=== PATIENT | female | born 1945 ===

== ENCOUNTER → 2023-04-21 14:01 | Outpatient (CLI) | payer MEDICARE, BC, SELFPAY ==
[2023-04-21 20:36] LABS: BUN Creatinine Ratio 15.3 (6-22); Blood Urea Nitrogen 32 mg/dL (7-17); Carbon Dioxide 20 mmol/L (22-32); Chloride 107 mmol/L (98-107); Estimated Glomerular Filt Rate 24 mL/min (>60); Glucose 87 mg/dL (80-110); HEMOLYSIS < 15 (0-50); Potassium 5.2 mmol/L (3.4-5.1); Sodium 137 mmol/L (137-145)
[2023-04-21 21:18] LABS: Creatinine Urine Random 106.9 mg/dL; Protein (Total) Urine Random 9 mg/dL (0-12); Protein Creatinine Ratio Urine 0.08 GRAM/24H
[2023-04-24 09:20] LABS: Parathyroid Hormone Int 54 pg/mL (15-65)
== END ==
PROVIDERS: PCP Family Medicine; Visit Provider Student in an Organized Health Care Education/Training Program
DX: N05.9 Unspecified nephritic syndrome with unspecified morphologic changes (principal); N25.81 Secondary hyperparathyroidism of renal origin; R80.9 Proteinuria, unspecified
CPT/HCPCS: 80048; 82570; 83970; 84156

== ENCOUNTER → 2023-04-30 11:51 | Outpatient (CLI) | payer MEDICARE, BC, SELFPAY ==
[2023-04-30 21:11] LABS: HEMOLYSIS 17 (0-50)
== END ==
PROVIDERS: PCP Family Medicine; Visit Provider Student in an Organized Health Care Education/Training Program
DX: E87.5 Hyperkalemia (principal)
CPT/HCPCS: 84132

== ENCOUNTER → 2023-11-17 13:54 | Outpatient (CLI) | payer MEDICARE, BC, SELFPAY ==
[2023-11-17 20:31] LABS: Hematocrit 40.9 % (36-46); Hemoglobin 13.6 g/dL (12.0-16.0)
[2023-11-17 20:33] LABS: Appearance Urine UA CLEAR; Bilirubin Urine UA NEGATIVE (NEGATIVE); Color Urine UA YELLOW; Glucose Urine UA NEGATIVE (Negative); Ketones Urine UA NEGATIVE (NEGATIVE); Leukocyte Esterase Urine UA 1+ (NEGATIVE); Nitrite Urine UA NEGATIVE (Negative); Occult Blood Urine UA NEGATIVE (Negative); Protein Urine UA NEGATIVE (Negative); Urobilinogen Urine UA 0.2 E.U./dL (0.2)
[2023-11-17 20:41] LABS: BUN Creatinine Ratio 24.5 (6-22); Blood Urea Nitrogen 36 mg/dL (7-17); Calcium 9.6 mg/dL (8.4-10.2); Carbon Dioxide 25 mmol/L (22-32); Chloride 110 mmol/L (98-107); Estimated Glomerular Filt Rate 36 mL/min (>60); Glucose 87 mg/dL (80-110); HEMOLYSIS 25 (0-50); Phosphorous 3.9 mg/dL (2.8-4.1); Potassium 4.3 mmol/L (3.4-5.1); Sodium 140 mmol/L (137-145)
[2023-11-17 20:46] LABS: Urine Volume 10mL (spun)
[2023-11-17 20:47] LABS: Bacteria Urine Moderate (10-30); Culture Indicated Urine Specimen Cultured; RBC Urine None Seen (0-5/HPF); Squamous Epithelial Cell Urine 5-10 /HPF (0-5/HPF); WBC Urine 5-10/HPF (0-5/HPF)
[2023-11-17 21:06] LABS: Creatinine Urine Random 82.05 mg/dL; Protein (Total) Urine Random 7 mg/dL (0-12); Protein Creatinine Ratio Urine 0.08 GRAM/24H
[2023-11-21 08:08] LABS: Parathyroid Hormone Int 47 pg/mL (15-65)
== END ==
PROVIDERS: PCP Family Medicine; Visit Provider Student in an Organized Health Care Education/Training Program
DX: N05.9 Unspecified nephritic syndrome with unspecified morphologic changes (principal); D70.9 Neutropenia, unspecified; D63.1 Anemia in chronic kidney disease; E83.30 Disorder of phosphorus metabolism, unspecified; N25.81 Secondary hyperparathyroidism of renal origin; N30.00 Acute cystitis without hematuria; R80.9 Proteinuria, unspecified
CPT/HCPCS: 80048; 81001; 82570; 83970; 84100; 84156; 85014; 85018; 87077; 87086; 87186

== ENCOUNTER → 2024-06-06 14:47 | Outpatient (CLI) | payer MEDICARE, BC, SELFPAY ==
[2024-06-06 19:02] LABS: Hematocrit 42.2 % (36-46); Hemoglobin 13.9 g/dL (12.0-16.0)
[2024-06-06 19:12] LABS: BUN Creatinine Ratio 15.3 (6-22); Blood Urea Nitrogen 28 mg/dL (7-17); Calcium 9.6 mg/dL (8.4-10.2); Carbon Dioxide 25 mmol/L (22-32); Chloride 107 mmol/L (98-107); Estimated Glomerular Filt Rate 28 mL/min (>60); Glucose 116 mg/dL (80-110); HEMOLYSIS < 15 (0-50); Potassium 4.4 mmol/L (3.4-5.1); Sodium 138 mmol/L (137-145)
[2024-06-06 19:24] LABS: Creatinine Urine Random 103.19 mg/dL
[2024-06-06 19:29] LABS: Microalbumin Urine Random 2.3 mg/dL (0-1.6)
[2024-06-08 13:11] LABS: Calcium 9.7 mg/dL (8.7-10.3); Parathyroid Hormone, Intact 54 pg/mL (15-65)
== END ==
PROVIDERS: PCP Family Medicine; Visit Provider Student in an Organized Health Care Education/Training Program
DX: N05.9 Unspecified nephritic syndrome with unspecified morphologic changes (principal); D63.1 Anemia in chronic kidney disease; D70.9 Neutropenia, unspecified; R80.9 Proteinuria, unspecified; N25.81 Secondary hyperparathyroidism of renal origin
CPT/HCPCS: 80048; 82043; 82310; 82570; 83970; 85014; 85018